=== PATIENT | male | born 1955 | race Caucasian/White ===

== ENCOUNTER → 2024-03-31 | Day surgery (SDC) | payer MEDICARE ==
[2024-03-26 09:01] LABS: BASOPHILS # (AUTO) 0.1 (0.0-0.1); EOSINOPHILS # (AUTO) 0.2 (0.0-0.4); HEMATOCRIT 40.9 % (38.2-49.6); HEMOGLOBIN 13.3 g/dL (14.0-18.0); LYMPHOCYTES % 33.5 % (18.0-39.1); MEAN CORPUSCULAR HEMOGLOBIN 30.6 pg (28-32); MEAN CORPUSCULAR HGB CONC 32.5 g/dL (31-35); MONOCYTES # (AUTO) 0.5 (0.2-0.8); MONOCYTES % 4.3 % (4.4-11.3); NEUTROPHILS # (AUTO) 7.1 (2.1-6.9); NEUTROPHILS % 58.9 % (38.7-80.0); PLATELET COUNT 333 x10e3/uL (140-360); RED BLOOD COUNT 4.35 x10e6/uL (4.3-5.7); RED CELL DISTRIBUTION WIDTH 13.7 % (11.7-14.4); WHITE BLOOD COUNT 12.07 x10e3/uL (4.8-10.8)
[2024-03-26 09:19] LABS: ANION GAP 12.1 mmol/L (8-16); CALCIUM 9.4 mg/dL (8.4-10.2); CREATININE, SERUM 0.85 mg/dL (0.72-1.25); POTASSIUM 4.1 mmol/L (3.5-5.1)
[~2024-03-31] MED LIST: ACCUPRIL10 MG PO; ACETAMINOPHEN 1000 MG/100 ML 100 ML IV ONE; BACLOFEN10 MG PO; BELBUCA300 MCG PO; BISOPROLOL-HCT1 EAC1 PO; DEXAMETHASONE SOD PHOS INJ 4 MG/ML SDV ONE; FENTANYL CITRATE/PF 100MCG/2 ML INJ ONE; FLOMAX0.4 MG PO; GLYCOPYRROLATE INJ 0.2 MG/ML VIAL ONE; HYDROCODON-ACE1 EAC9 PO; LIDOCAINE HCL 2% LOCAL INJ 5 ML SDV VIAL INJ ONE; MULTI-VITAMIN1 EACH PO; NEOSTIGMINE 1 MG/ML 10ML VIAL ONE; NORCO 7.5-3251 EACH PO; ONDANSETRON HCL INJ 2MG/ML 2ML 2 MG/ML VIAL ONE; PANTOPRAZOLE SO40 MG PO; PHENYLEPHRINE HCL 1% 10 MG/ML VIAL ONE; PROPOFOL IV EMULSION 10 MG/ML 20 ML VIAL ONE; QUINAPRIL HCL20 MG PO; ROCURONIUM BROMIDE 1 ML IV ONE; STOOL SOFTENER; ZESTRIL10 MG PO
[2024-03-31] MEDS: LACTATED RINGER'S 1,000 ML ONE (07:54)
[2024-03-31 11:24] VITALS: TEMP 97.6
[2024-03-31] MEDS: ONDANSETRON HCL INJ 2MG/ML 2ML 2 MG/ML VIAL ONE (11:36)
[2024-03-31 12:20] VITALS: BP 124/71; PULSE 84; RESP 16; O2SAT 98
== END | disposition home or self-care (01) ==
LOC: OR 07:30
PROVIDERS: ATTEND Surgery
DX: K40.40 Unilateral inguinal hernia, with gangrene, not specified as recurrent (principal); K41.90 Unilateral femoral hernia, without obstruction or gangrene, not specified as recurrent; D17.6 Benign lipomatous neoplasm of spermatic cord; I10 Essential (primary) hypertension; N40.0 Benign prostatic hyperplasia without lower urinary tract symptoms; K21.9 Gastro-esophageal reflux disease without esophagitis; F17.200 Nicotine dependence, unspecified, uncomplicated; Z88.6 Allergy status to analgesic agent; Z88.0 Allergy status to penicillin; Z01.810 Encounter for preprocedural cardiovascular examination; Z01.812 Encounter for preprocedural laboratory examination; Z01.818 Encounter for other preprocedural examination; Z79.899 Other long term (current) drug therapy
CPT/HCPCS: 36415; 49505; 49550; 71046; 80048; 85025; 93005; C1781; J0131; J1100; J2003; J2371; J2405; J2704; J2710; J3010; J7121